=== PATIENT | male | born 1985 | race Caucasian/White ===

== ENCOUNTER 2018-09-30 10:47 | Emergency (ER) | payer MEDICAID ==
[~2018-09-30] VITALS: Ht 165.1 cm; Wt 90.9 kg
[~2018-09-30 10:47] MED LIST: PALI234D IM; RISP1TAB3 PO
[2018-09-30] MEDS ORDERED: CLOZ50TA PO ×2 (13:26→15:44)
[2018-09-30 14:06] LABS: BASOPHILS % (AUTO) 0.2 % (0-1); EOSINOPHILS # (AUTO) 0.1 X10'3 (0-0.9); EOSINOPHILS % (AUTO) 2.4 % (0-6); HEMATOCRIT 40.3 % (42.0-52.0); HEMOGLOBIN 13.9 g/dl (14.0-17.9); LYMPHOCYTES # (AUTO) 1.2 X10'3 (1.1-4.8); LYMPHOCYTES % (AUTO) 24.9 % (21-51); MEAN CORPUSCULAR HEMOGLOBIN 29.3 PG (27.0-31.0); MEAN CORPUSCULAR HGB CONC 34.3 % (33.0-36.5); MEAN CORPUSCULAR VOLUME 85.4 FL (78-98); MEAN PLATELET VOLUME 7.4 FL (7.4-10.4); MONOCYTES # (AUTO) 0.3 X10'3 (0-0.9); MONOCYTES % (AUTO) 5.9 % (2-12); NEUTROPHILS # (AUTO) 3.3 X10'3 (1.8-7.7); NEUTROPHILS % (AUTO) 66.6 % (42-75); PLATELET COUNT 146 X10'3 (140-440); RED BLOOD COUNT 4.72 X10'6 (4.70-6.10); RED CELL DISTRIBUTION WIDTH 13.5 % (11.5-14.5)
[2018-09-30 14:09] LABS: URINE AMPHETAMINE SCREEN NEGATIVE (Neg); URINE BARBITUATE SCREEN NEGATIVE (Neg); URINE BENZODIAZEPINES SCREEN NEGATIVE (Neg); URINE CANNABINOID SCREEN NEGATIVE (Neg); URINE COCAINE SCREEN NEGATIVE (Neg); URINE METHADONE SCREEN NEGATIVE (Neg); URINE OPIATE SCREEN NEGATIVE (Neg); URINE PHENCYCLIDINE SCREEN NEGATIVE (Neg)
[2018-09-30 14:18] LABS: ALANINE AMINOTRANSFERASE 25 U/L (12-78); ALBUMIN 3.8 G/DL (3.4-5.0); ALBUMIN/GLOBULIN RATIO 1.2 (1.1-1.5); ALKALINE PHOSPHATASE 86 IU/L (46-116); ANION GAP 5 (8-16); ASPARTATE AMINO TRANSFERASE 17 U/L (10-37); BILIRUBIN,TOTAL 0.4 MG/DL (0.1-1.0); BLOOD UREA NITROGEN 9 MG/DL (7-18); BUN/CREATININE RATIO 10.6 (5.4-32.0); CALCIUM 9.2 MG/DL (8.5-10.1); CHLORIDE 99 MMOL/L (99-107); CREATININE 0.85 MG/DL (0.60-1.10); ETHANOL < 0.010 GM/DL (0.0-0.010); GLUCOSE 83 MG/DL (70-104); SODIUM 136 MMOL/L (135-145); TOTAL CARBON DIOXIDE 31.8 MMOL/L (24-32); TOTAL PROTEIN 7.1 G/DL (6.4-8.2); eGFR > 90 ML/MIN
[2018-09-30] MEDS ORDERED: non-formulary drug (Clozapine 1 TAB) PO SCH (20:00)
[2018-09-30] MEDS ORDERED: clozapine 25mg tablet PO SCH (20:00)
[2018-09-30 21:55] LABS: CLARITY,URINE CLEAR (Clear); COLOR,URINE STRAW (Yellow); GLUCOSE, URINE NEGATIVE (Neg); KETONES,URINE NEGATIVE (Neg); LEUKOCYTE ESTERASE ,URINE NEGATIVE (Neg); NITRITES, URINE NEGATIVE (Neg); OCCULT BLOOD,URINE NEGATIVE (Neg); PH,URINE 6.5 (4.8-8.0); PROTEIN,URINE NEGATIVE (Neg); UA COLLECTION TYPE CLN CATCH MIDSTREAM; UROBILINOGEN,URINE 0.2 E.U/dL (0.2-1.0)
[2018-10-01 06:02] VITALS: BP 118/77
[2018-10-01] MEDS ORDERED: paliperidone palmitate inj 234 MG/1.5 ML SYRINGE IM SCH (08:00)
[2018-10-01] MEDS ORDERED: clozapine 25mg tablet PO ONE ×2 (08:00→21:00)
[2018-10-02] MEDS ORDERED: clozapine 25mg tablet PO SCH (08:00)
[2018-10-03] MEDS ORDERED: clozapine 25mg tablet PO ONE ×2 (08:00→21:00)
[2018-10-04] MEDS ORDERED: clozapine 25mg tablet PO SCH (08:00)
== END 2018-10-01 15:10 ==
LOC: ER 10:47
DX: R44.0 Auditory hallucinations (principal); F31.9 Bipolar disorder, unspecified; Z79.899 Other long term (current) drug therapy
CPT/HCPCS: 36415; 80053; 80305; 80320; 81003; 84443; 85025; 96372; 99285

== ENCOUNTER 2020-08-01 12:52 | Emergency (ER) | payer MEDICAID ==
[~2020-08-01] VITALS: Ht 170.2 cm; Wt 68.2 kg
[~2020-08-01 12:52] MED LIST changes: +CLOZ50TA PO; -RISP1TAB3 PO
[2020-08-01] MEDS ORDERED: LORazepam 1 MG tablet PO ONE (13:50)
[2020-08-01 14:07] VITALS: BP 103/61
[2020-08-01 14:16] LABS: BASOPHILS % (AUTO) 0.2 % (0-1); EOSINOPHILS # (AUTO) 0.1 X10'3 (0-0.9); EOSINOPHILS % (AUTO) 1.7 % (0-6); HEMATOCRIT 34.1 % (42.0-52.0); LYMPHOCYTES # (AUTO) 0.7 X10'3 (1.1-4.8); LYMPHOCYTES % (AUTO) 10.9 % (21-51); MEAN CORPUSCULAR HEMOGLOBIN 30.3 PG (27.0-31.0); MEAN CORPUSCULAR HGB CONC 35.2 g/dL (33.0-36.5); MEAN CORPUSCULAR VOLUME 86.1 FL (78-98); MONOCYTES # (AUTO) 0.3 X10'3 (0-0.9); NEUTROPHILS # (AUTO) 5.3 X10'3 (1.8-7.7); NEUTROPHILS % (AUTO) 82.2 % (42-75); PLATELET COUNT 105 X10'3 (140-440); RED BLOOD COUNT 3.96 X10'6 (4.70-6.10); RED CELL DISTRIBUTION WIDTH 13.6 % (11.5-14.5); WHITE BLOOD COUNT 6.5 X10'3 (4.5-11.0)
[2020-08-01 14:34] LABS: ALANINE AMINOTRANSFERASE 26 U/L (12-78); ALBUMIN 3.7 G/DL (3.4-5.0); ALBUMIN/GLOBULIN RATIO 1.3 (1.1-1.5); ALKALINE PHOSPHATASE 82 IU/L (46-116); ANION GAP 6 (8-16); ASPARTATE AMINO TRANSFERASE 15 U/L (10-37); BILIRUBIN,TOTAL 0.2 MG/DL (0.1-1.0); BLOOD UREA NITROGEN 12 MG/DL (7-18); BUN/CREATININE RATIO 10.6 (5.4-32.0); CALCIUM 8.7 MG/DL (8.5-10.1); CHLORIDE 101 MMOL/L (99-107); CREATININE 1.13 MG/DL (0.60-1.10); GLUCOSE 86 MG/DL (70-104); POTASSIUM 4.1 MMOL/L (3.5-5.1); SODIUM 138 MMOL/L (135-145); TOTAL CARBON DIOXIDE 30.7 MMOL/L (24-32); TOTAL PROTEIN 6.5 G/DL (6.4-8.2); eGFR 75 ML/MIN
== END 2020-08-01 15:04 | disposition home or self-care (01) ==
LOC: ER 12:53
DX: R56.9 Unspecified convulsions (principal); K21.9 Gastro-esophageal reflux disease without esophagitis; F31.9 Bipolar disorder, unspecified; R41.82 Altered mental status, unspecified; Z79.899 Other long term (current) drug therapy
CPT/HCPCS: 36415; 80053; 85025; 99284

== ENCOUNTER 2020-09-24 09:02 | Emergency (ER) | payer MEDICAID ==
[~2020-09-24] VITALS: Ht 175.3 cm; Wt 79.0 kg
--- NOTE | 2020-09-24 09:22 | NUR ---
Spoke with Wade Blanc, clinician that wrote the 5150 hold as pt denies s/h ideation, audio/visual halluinations and is willing to go to the [facility] thus not meeting this rn's understanding for hold. Per Wade, pt is followed by [facility]. Pt has been decompensating and lost his B&C placement @ [facility] d/t their inability to provided his 1:1 care need. Wade indicated [facility] placement was considered, but not viable as pt unable to take his meds as prescribed which would result in further decompensation. Wade reports this pt decompensates rapidly. When asked how PHF would alleviate the need for revolving 5150s as Wade indicated a TCON had not been sought he directed me to Jaciel, a clinicial with greater knowledge of this pt's hx. Per Jaciel, goal for this pt is to stabalize him, beginning in ED then @ a PHF while further B&C placement sought by [facility]. If placement does not materialize a TCON will be sought. WINSTON Crews & DELMIS Augustin updated.
[2020-09-24 09:53] LABS: BASOPHILS % (AUTO) 0.4 % (0-1); EOSINOPHILS # (AUTO) 0.2 X10'3 (0-0.9); EOSINOPHILS % (AUTO) 5.4 % (0-6); HEMATOCRIT 39.6 % (42.0-52.0); HEMOGLOBIN 13.4 g/dl (14.0-17.9); LYMPHOCYTES % (AUTO) 25.5 % (21-51); MEAN CORPUSCULAR HEMOGLOBIN 29.7 PG (27.0-31.0); MEAN CORPUSCULAR VOLUME 87.3 FL (78-98); MEAN PLATELET VOLUME 7.9 FL (7.4-10.4); MONOCYTES # (AUTO) 0.3 X10'3 (0-0.9); MONOCYTES % (AUTO) 6.7 % (2-12); NEUTROPHILS # (AUTO) 2.5 X10'3 (1.8-7.7); PLATELET COUNT 123 X10'3 (140-440); RED BLOOD COUNT 4.53 X10'6 (4.70-6.10)
[2020-09-24 10:06] LABS: ALANINE AMINOTRANSFERASE 44 U/L (12-78); ALBUMIN 3.9 G/DL (3.4-5.0); ALBUMIN/GLOBULIN RATIO 1.3 (1.1-1.5); ALKALINE PHOSPHATASE 100 IU/L (46-116); ANION GAP 3 (8-16); ASPARTATE AMINO TRANSFERASE 20 U/L (10-37); BILIRUBIN,TOTAL 0.3 MG/DL (0.1-1.0); BLOOD UREA NITROGEN 12 MG/DL (7-18); BUN/CREATININE RATIO 12.5 (5.4-32.0); CALCIUM 9.3 MG/DL (8.5-10.1); CHLORIDE 105 MMOL/L (99-107); CREATININE 0.96 MG/DL (0.60-1.10); GLUCOSE 68 MG/DL (70-104); POTASSIUM 4.4 MMOL/L (3.5-5.1); SODIUM 142 MMOL/L (135-145); TOTAL CARBON DIOXIDE 33.7 MMOL/L (24-32); eGFR 90 ML/MIN
[2020-09-24 10:17] LABS: ETHANOL < 0.010 GM/DL (0.0-0.010)
[2020-09-24 11:17] LABS: CLARITY,URINE CLEAR (Clear); COLOR,URINE STRAW (Yellow); GLUCOSE, URINE NEGATIVE (Neg); KETONES,URINE NEGATIVE (Neg); LEUKOCYTE ESTERASE ,URINE NEGATIVE (Neg); NITRITES, URINE NEGATIVE (Neg); OCCULT BLOOD,URINE NEGATIVE (Neg); PROTEIN,URINE NEGATIVE (Neg); UROBILINOGEN,URINE 0.2 E.U/dL (0.2-1.0)
[2020-09-24 11:19] LABS: UA COLLECTION TYPE CLN CATCH MIDSTREAM
[2020-09-24 11:35] LABS: URINE AMPHETAMINE SCREEN NEGATIVE (Neg); URINE BARBITUATE SCREEN NEGATIVE (Neg); URINE BENZODIAZEPINES SCREEN NEGATIVE (Neg); URINE CANNABINOID SCREEN NEGATIVE (Neg); URINE COCAINE SCREEN NEGATIVE (Neg); URINE METHADONE SCREEN NEGATIVE (Neg); URINE OPIATE SCREEN NEGATIVE (Neg); URINE PHENCYCLIDINE SCREEN NEGATIVE (Neg)
--- NOTE | 2020-09-24 14:14 | NUR ---
Nurse:nurse teague/ MELANIE Esposito [facility] in preparation for presentation to their MD for placement. Rapid Covid request d/t high probability of [facility]. [facility]
--- NOTE | 2020-09-24 16:11 | NUR ---
notified camilla collins of covid negative status.
--- NOTE | 2020-09-24 16:19 | NUR ---
confirmed receipt of faxed covid results.
--- NOTE | 2020-09-24 17:07 | NUR ---
Per [facility]un[facility], pt has been accepted @ [facility] with transfer eta ~ [id number]. amelia carmichael & eboni xiao updated.
[2020-09-24 19:21] VITALS: BP 136/94
== END 2020-09-24 19:23 ==
LOC: ER 09:02
DX: F20.9 Schizophrenia, unspecified (principal); F31.9 Bipolar disorder, unspecified; K21.9 Gastro-esophageal reflux disease without esophagitis; Z73.9 Problem related to life management difficulty, unspecified; Z79.899 Other long term (current) drug therapy; Z20.828 Contact with and (suspected) exposure to other viral communicable diseases
CPT/HCPCS: 36415; 80053; 80305; 80320; 81003; 84443; 85025; 87635; 99285; C9803